=== PATIENT | female | born 1960 | race Caucasian/White ===

== ENCOUNTER 2020-11-09 05:55 | Emergency (ER) | payer OTHER ==
[~2020-11-09 05:55] MED LIST: ATARAX25 MG PO; CARAFATE1 GM PO; GABAPENTIN100 MG PO; HYDROCODON-ACE1 EAC6 PO; KLONOPIN0.5 MG PO; MOBIC15 MG PO; NEURONTIN300 M1 PO; NEURONTIN300 MG PO; NORCO 10-325 T1 EACH PO; OMEPRAZOLE40 MG PO; PREMARIN0.3 MG PO; SYNTHROID100 MCG PO; TIZANIDINE HCL6 MG PO; TOPAMAX50 MG PO; VICODIN 10/3251 EACH PO
[2020-11-09 06:21] LABS: BASOPHIL 0.1 % (0-2); EOSINOPHIL 0.6 % (0-5); HCT 43.2 % (37.0-47.0); LYMPHOCYTE 38.8 % (15-48); MCH 31.2 pg (25.0-31.0); MCHC 32.4 g/dL (32.0-36.0); MCV 96.2 fL (78.0-100.0); MONOCYTE 5.4 % (0-12); MPV 9.9 fL (6.0-9.5); NEUTROPHIL 54.8 % (41-80); NRBC 0; PLT 145 K/uL (150-400); RBC 4.49 M/uL (4.20-5.40); RDW 12.1 % (11.5-14.0); WBC 6.7 K/uL (4.0-10.5)
[2020-11-09 06:21] LABS: BILIRUBIN NEGATIVE (NEGATIVE); BLOOD 1+ Ery/uL (NEGATIVE); CLARITY CLEAR (CLEAR); COLOR YELLOW (YELLOW); GLUCOSE (U) NORMAL (NORMAL); LEUKOCYTES NEGATIVE Leu/uL (NEGATIVE); NITRITE NEGATIVE (NEGATIVE); PROTEIN NEGATIVE (NEGATIVE); SPECIFIC GRAVITY >=1.030 (1.001-1.030); UROBILINOGEN 0.2 mg/dL (0.2-1.0)
[2020-11-09 06:28] LABS: BACTERIA TRACE; MUCOUS MODERATE; SQUAMOUS EPITHELIAL CELLS 20-50; URINARY WBC RARE
[2020-11-09 07:55] LABS: ALBUMIN 3.5 g/dL (3.4-5.0); BILIRUBIN - TOTAL 0.5 mg/dL (0.2-1.0); BUN/CREAT RATIO (CALC) 46.6 RATIO; CREATININE 0.58 mg/dL (0.51-0.95); GLOBULIN (CALCULATION) 3.3 g/dL; POTASSIUM 3.9 mmol/L (3.5-5.1); TOTAL PROTEIN 6.8 g/dL (6.4-8.2)
[2020-11-09] MEDS ORDERED: VIBRAMYCIN100 MG PO (10:29)
[2020-11-09] MEDS ORDERED: NORCO 5-325 TA1 EACH PO (10:29)
[2020-11-09] MEDS ORDERED: COLACE100 MG PO (10:33)
== END 2020-11-09 10:43 | disposition home or self-care (01) ==
LOC: FER 05:55
PROVIDERS: Emergency Medicine
DX: K42.9 Umbilical hernia without obstruction or gangrene (principal); N85.8 Other specified noninflammatory disorders of uterus; K59.00 Constipation, unspecified; Z88.5 Allergy status to narcotic agent
CPT/HCPCS: 36415; 80053; 81001; 83690; 85025; J1170; J2405; J7030; Q9967

== ENCOUNTER 2020-12-08 20:53 | Emergency (ER) | payer OTHER ==
[~2020-12-08 20:53] MED LIST changes: +COLACE100 MG PO; +NORCO 5-325 TA1 EACH PO; +VIBRAMYCIN100 MG PO
[2020-12-08 21:56] LABS: BASOPHIL 0.5 % (0-2); EOSINOPHIL 1.1 % (0-5); HCT 41.2 % (37.0-47.0); HGB 13.7 g/dl (12.5-16.0); LYMPHOCYTE 37.4 % (15-48); MCH 31.4 pg (25.0-31.0); MCHC 33.3 g/dL (32.0-36.0); MCV 94.5 fL (78.0-100.0); MONOCYTE 5.4 % (0-12); NEUTROPHIL 55.4 % (41-80); NRBC 0; PLT 165 K/uL (150-400); RBC 4.36 M/uL (4.20-5.40); RDW 11.9 % (11.5-14.0); WBC 6.7 K/uL (4.0-10.5)
[2020-12-08 22:33] LABS: ALBUMIN 3.7 g/dL (3.4-5.0); ALKALINE PHOSHATASE 42 U/L (46-116); ALT 24 U/L (14-59); BILIRUBIN - TOTAL 0.4 mg/dL (0.2-1.0); BUN 15 mg/dL (7-18); CHLORIDE 104 mmol/L (98-107); CO2 (BICARBONATE) 27 mmol/L (21-32); CREATININE 0.71 mg/dL (0.51-0.95); GLOBULIN (CALCULATION) 3.1 g/dL; POTASSIUM 4.3 mmol/L (3.5-5.1); TOTAL PROTEIN 6.8 g/dL (6.4-8.2)
[2020-12-08 22:34] LABS: C-REACTIVE PROTEIN < 0.20 mg/dL (<=0.90); CPK 111 U/L (26-192); GLUCOSE 102 mg/dL (74-106)
[2020-12-08 22:40] LABS: AST 18 U/L (15-37)
== END 2020-12-08 22:52 | disposition home or self-care (01) ==
LOC: FER 20:53
PROVIDERS: Emergency Medicine
DX: S50.01XA Contusion of right elbow, initial encounter (principal); Z88.6 Allergy status to analgesic agent; W57.XXXA Bitten or stung by nonvenomous insect and other nonvenomous arthropods, initial encounter
CPT/HCPCS: 36415; 73080; 80053; 82550; 84145; 85025; 86140